=== PATIENT | male | born 1940 | race Caucasian/White ===

== ENCOUNTER 2017-10-26 10:31 | Day surgery (SDC) | payer OTHER ==
[2017-10-26] MEDS ORDERED: PROPOFOL 500 MG/50 ML EMU IV ONE (10:42)
[2017-10-26 11:53] VITALS: RESP 20
[2017-10-26 12:05] VITALS: BP 111/66; PULSE 55; TEMP 97.2; O2SAT 98
== END 2017-10-26 12:30 | disposition home or self-care (01) | DRG 951 ==
LOC: SURG 10:31
PROVIDERS: ATTEND Surgery
DX: Z12.11 Encounter for screening for malignant neoplasm of colon (principal); D12.2 Benign neoplasm of ascending colon; Z86.010 Personal history of colon polyps
CPT/HCPCS: J2704

== ENCOUNTER 2018-12-21 12:00 | Outpatient (CLI) | payer OTHER | END 2018-12-21 12:01 | disposition home or self-care (01) | LOC: CONVCARE 12:01 ==